=== PATIENT | male | born 1955 ===

== ENCOUNTER 2024-11-02 06:25 | Day surgery (SDC) | payer MEDICARE ==
[~2024-11-02] VITALS: Ht 170.2 cm; Wt 83.7 kg
[2024-11-02] MEDS ORDERED: Lactated Ringer's 1,000 ML IV ONE ×2 (07:38→07:43)
[2024-11-02] MEDS ORDERED: propofoL 50 ML IV ONE (07:38)
== END 2024-11-02 08:50 | disposition home or self-care (01) ==
LOC: ORSCSDS 06:25
PROVIDERS: Internal Medicine Gastroenterology
PROC: 0DB68ZX Excision of Stomach, Via Natural or Artificial Opening Endoscopic, Diagnostic (ICD-10-PCS; principal; 2024-11-02 08:00)
PROC: 0DB98ZX Excision of Duodenum, Via Natural or Artificial Opening Endoscopic, Diagnostic (ICD-10-PCS; principal; 2024-11-02 08:00)
DX: R10.13 Epigastric pain (principal); R14.0 Abdominal distension (gaseous); Z90.49 Acquired absence of other specified parts of digestive tract
CPT/HCPCS: 88305; 88342; J2704; J7120